=== PATIENT | female | born 1975 | race Two or more races ===

== ENCOUNTER 2016-08-06 09:08 | Emergency (ER) | payer MEDICAID ==
[~2016-08-06] VITALS: Ht 162.6 cm; Wt 77.1 kg
--- NOTE | 2016-08-06 09:11 | Emergency Room Report ---
History of Present Illness General Chief Complaint: Generalized Weakness Source: Patient Present Illness HPI Patient is a 41-year-old female who presented after an increased generalized weakness. The patient was noted to have minimal nonproductive cough. Patient stated that she did not have a flu vaccine this year. The patient was noted to have some recent chemotherapy. Patient recent placement of a left forearm line. The patient been vomiting or having diarrhea. Patient had some sick contacts at home with cough. Allergies: Coded Allergies: No Known Allergies (Unverified , 08/06/16) Patient History Past Medical History: see triage record Last Menstrual Period: UNK Reviewed Nursing Documentation: PMH: Agreed, PSxH: Agreed Nursing Documentation-PMH Past Medical History: No History, Except For Hx Cancer: Yes - breast cancer Review of Systems All Other Systems: negative except mentioned in HPI Physical Exam Vital Signs Date Time Temp Pulse Resp B/P Pulse Ox O2 Delivery O2 Flow Rate FiO2 08/06/16 09:06 99.3 92 16 100/56 98 Room Air Sp02 EP Interpretation: reviewed, normal General Appearance: normal inspection, well appearing, no apparent distress, alert, GCS 15 Head: atraumatic ENT: normal ENT inspection, hearing grossly normal, normal voice Neck: normal inspection, full range of motion, supple, no bony tend Respiratory: normal inspection, lungs clear, normal breath sounds, no respiratory distress, no retraction, no wheezing Cardiovascular #1: regular rate, rhythm, no edema Gastrointestinal: normal inspection, normal bowel sounds, non tender, soft, no guarding, no hernia Genitourinary: no CVA tenderness Musculoskeletal: normal inspection, back normal, normal range of motion Neurologic: normal inspection, alert, oriented x3, responsive, cement tile maker III-XII nml as tested, speech normal Psychiatric: normal inspection, judgement/insight normal, mood/affect normal Skin: normal inspection, normal color, no rash Medical Decision Making Diagnostic Impression: Primary Impression: Breast cancer Additional Impression: Upper respiratory infection ER Course Patient is a 41-year-old female who presented after an increased generalized weakness. The patient was noted to have minimal nonproductive cough. Patient stated that she did not have a flu vaccine this year. Because of complexity of patient's case laboratory testing and imaging studies were ordered.The laboratory testing showed normal white blood count. The patient patient's oncologist she previously been neutropenic. The patient was advised to continue by mouth hydration she is advised followup with her oncologist and to continue her antibiotics. The patient did have some mild elevations of her liver function tests was advised to discontinue the fluconazole. The patient is advised to follow up with primary care doctor in 1-2 days. Patient is advised to return if any worsening condition or if any changes in status that are concerning. Labs Test 08/06/16 09:14 White Blood Count 7.4 K/UL (4.8-10.8) Red Blood Count 4.33 M/UL (4.20-5.40) Hemoglobin 12.6 G/DL (12.0-16.0) Hematocrit 36.9 % (37.0-47.0) Mean Corpuscular Volume 85 FL (80-99) Mean Corpuscular Hemoglobin 29.1 PG (27.0-31.0) Mean Corpuscular Hemoglobin Concent 34.1 G/DL (32.0-36.0) Red Cell Distribution Width 12.0 % (11.6-14.8) Platelet Count 163 K/UL (150-450) Mean Platelet Volume 6.7 FL (6.5-10.1) Neutrophils (%) (Auto) 68.5 % (45.0-75.0) Lymphocytes (%) (Auto) 17.8 % (20.0-45.0) Monocytes (%) (Auto) 10.8 % (1.0-10.0) Eosinophils (%) (Auto) 0.3 % (0.0-3.0) Basophils (%) (Auto) 2.6 % (0.0-2.0) Sodium Level 140 mEQ/L (135-145) Potassium Level 3.6 mEQ/L (3.4-4.9) Chloride Level 100 mEQ/L (98-107) Carbon Dioxide Level 23 mEQ/L (20-30) Anion Gap 17 (5-15) Blood Urea Nitrogen 5 mg/dL (7-23) Creatinine 0.7 mg/dL (0.5-0.9) Estimat Glomerular Filtration Rate > 60 mL/min (>60) Glucose Level 139 mg/dL (74-106) Lactic Acid Level 1.70 mmol/L (0.66-2.22) Calcium Level 8.9 mg/dL (8.6-10.2) Total Bilirubin 0.4 mg/dL (0.0-1.2) Aspartate Amino Transf (AST/SGOT) 49 U/L (5-40) Alanine Aminotransferase (ALT/SGPT) 115 U/L (3-33) Alkaline Phosphatase 85 U/L (35-104) Total Creatine Kinase 44 U/L (26-140) Creatine Kinase MB < 1.5 ng/mL (< 3.8) Creatine Kinase MB Relative Index 3.4 Troponin I < 0.30 ng/mL (<=0.30) Total Protein 7.4 g/dL (6.6-8.7) Albumin 4.1 g/dL (3.5-5.2) Globulin 3.3 g/dL Albumin/Globulin Ratio 1.2 (1.0-2.7) Lipase 57 U/L (< 60) Last Vital Signs Date Time Temp Pulse Resp B/P Pulse Ox O2 Delivery O2 Flow Rate FiO2 08/06/16 09:06 99.3 92 16 100/56 98 Room Air Status: improved Disposition: HOME, SELF-CARE Condition: Stable Donnell Hargrove Aug 06, 2016 09:11
[2016-08-06 09:15] VITALS: BP 102/56
[2016-08-06 09:35] LABS: BASOPHILS % (AUTO) 2.6 % (0.0-2.0); EOSINOPHILS % (AUTO) 0.3 % (0.0-3.0); LYMPHOCYTES % (AUTO) 17.8 % (20.0-45.0); MEAN CORPUSCULAR HEMOGLOBIN 29.1 PG (27.0-31.0); MEAN CORPUSCULAR HGB CONC 34.1 G/DL (32.0-36.0); MEAN CORPUSCULAR VOLUME 85 FL (80-99); MEAN PLATELET VOLUME 6.7 FL (6.5-10.1); MONOCYTES % (AUTO) 10.8 % (1.0-10.0); NEUTROPHILS % (AUTO) 68.5 % (45.0-75.0); PLATELET COUNT 163 K/UL (150-450); RED BLOOD COUNT 4.33 M/UL (4.20-5.40); WHITE BLOOD COUNT 7.4 K/UL (4.8-10.8)
[2016-08-06 09:53] LABS: ALANINE AMINOTRANSFERASE 115 U/L (3-33); ALBUMIN/GLOBULIN RATIO 1.2 (1.0-2.7); ANION GAP 17 (5-15); ASPARTATE AMINO TRANSFERASE 49 U/L (5-40); CALCIUM 8.9 mg/dL (8.6-10.2); CARBON DIOXIDE 23 mEQ/L (20-30); CHLORIDE 100 mEQ/L (98-107); CREATININE 0.7 mg/dL (0.5-0.9); GLOMERULAR FILTRATION RATE > 60 mL/min (>60); HEMOLYSIS 56; LIPASE 57 U/L (< 60); POTASSIUM 3.6 mEQ/L (3.4-4.9); SODIUM 140 mEQ/L (135-145); TOTAL PROTEIN 7.4 g/dL (6.6-8.7)
[2016-08-06 09:55] LABS: TROPONIN I < 0.30 ng/mL (<=0.30)
[2016-08-06 10:05] LABS: CKMB < 1.5 ng/mL (< 3.8)
[2016-08-06 10:30] VITALS: BP 103/62
[2016-08-06 10:45] VITALS: BP 103/62
--- NOTE | 2016-08-06 10:55 | Diagnostic Imaging Report ---
Indication: Dyspnea Comparison: None A single view chest radiograph was obtained. Findings: Cardiomediastinal appearance is within normal limits for age. PICC line is in good position with the tip in the right atrium. Pulmonary vascularity is appropriate. The diaphragmatic contour is smooth and costophrenic angles are sharp. No pleural effusions are identified. The bones are unremarkable. Impression: No acute findings
--- NOTE | 2016-08-09 18:03 | Cardiology Report ---
APPROVED REPORT EKG Measurement Heart [id number] Normal sinus rhythm Normal ECG
== END 2016-08-06 10:45 | disposition home or self-care (01) ==
LOC: EDBD 09:08 → EMR 09:25
DX: C50.919 Malignant neoplasm of unspecified site of unspecified female breast (principal); J06.9 Acute upper respiratory infection, unspecified
CPT/HCPCS: 36415; 71010; 80053; 82550; 82553; 83605; 83690; 84484; 85025; 87040; 93005; 99283